=== PATIENT | female | born 1995 ===

== ENCOUNTER 2016-08-30 12:14 | Emergency (ER) | payer MEDICAID ==
[2016-08-30 12:20] VITALS: BMI 25.6
[2016-08-30] MEDS ORDERED: Divalproex 500 mg DR(BID formulation) PO STA (12:40)
--- NOTE | 2016-08-30 12:45 | ED PDOC ---
Arrival/HPI - General Chief Complaint: Seizure Time Seen by Provider: 08/30/16 12:39 Historian: Patient, Parent (mother) - History of Present Illness Narrative History of Present Illness (Text): 08/30/16 12:40 This 21 yo female presents to this ED requesting medication refill. Patient stated she had a seizure episode last week and yesterday. Patient stated she has not taken Keppra since it ran out x 2 months ago. She still have enough Topomax for another week. Patient stated she feels well at this time, and she denies symptoms. Time/Duration: Other (see HPI) Context: Home Past Medical History - Provider Review Nursing Documentation Reviewed: Yes - Cardiac Hx Cardiac Disorders: No - Pulmonary Hx Respiratory Disorders: No - Neurological Hx Neurological Disorder: Yes Hx Seizures: Yes - HEENT Hx HEENT Disorder: No - Renal Hx Renal Disorder: No - Endocrine/Metabolic Hx Endocrine Disorders: No - Hematological/Oncological Hx Blood Disorders: No - Integumentary Hx Dermatological Disorder: No - Musculoskeletal/Rheumatological Hx Musculoskeletal Disorders: No - Gastrointestinal Hx Gastrointestinal Disorders: No - Genitourinary/Gynecological Hx Genitourinary Disorders: No - Psychiatric Hx Psychophysiologic Disorder: No Hx Depression: No Hx Emotional Abuse: No Hx Physical Abuse: No Hx Substance Use: No - Surgical History Hx Tonsillectomy: Yes - Anesthesia Hx Anesthesia: Yes Hx Anesthesia Reactions: No Hx Malignant Hyperthermia: No - Suicidal Assessment Feels Threatened In Home Enviroment: No Family/Social History - Physician Review Nursing Documentation Reviewed: Yes Family/Social History: No Known Family HX Smoking Status: Never Smoked Hx Alcohol Use: No Hx Substance Use: No Hx Substance Use Treatment: No Allergies/Home Meds Allergies/Adverse Reactions: Allergies No Known Allergies Allergy (Verified 08/30/16 12:20) Home Medications: Home Meds Medication Instructions Recorded Confirmed Divalproex [Depakote ER] 1,000 mg PO BID 05/15/16 08/30/16 Folic Acid [Folic Acid] 1 mg PO DAILY 08/30/16 08/30/16 Topiramate [Topamax] 100 mg PO BID 08/30/16 08/30/16 Review of Systems - Review of Systems Constitutional: Normal. absent: Fatigue, Weight Change, Fevers Eyes: Normal ENT: Normal Respiratory: Normal Cardiovascular: Normal Gastrointestinal: Normal Genitourinary Female: Normal Musculoskeletal: Normal Skin: Normal Neurological: Seizure ([facility] seizures. needs refill) Endocrine: Normal Hemo/Lymphatic: Normal Psychiatric: Normal Physical Exam Vital Signs Temp Pulse Resp BP Pulse Ox 08/30/16 14:04 98 F 98 H 16 132/59 L 82 L 08/30/16 12:21 97.9 F Temperature: Afebrile Blood Pressure: Normal Pulse: Regular Respiratory Rate: Normal Appearance: Positive for: Well-Appearing, Non-Toxic, Comfortable Pain Distress: None Mental Status: Positive for: Alert and Oriented X 3 - Systems Exam Head: Present: Atraumatic, Normocephalic Pupils: Present: PERRL Extroacular Muscles: Present: EOMI Conjunctiva: Present: Normal Mouth: Present: Moist Mucous Membranes Neck: Present: Normal Range of Motion Respiratory/Chest: Present: Clear to Auscultation, Good Air Exchange. No: Respiratory Distress, Accessory Muscle Use Cardiovascular: Present: Regular Rate and Rhythm, Normal S1, S2. No: Murmurs Abdomen: Present: Normal Bowel Sounds. No: Tenderness, Distention, Peritoneal Signs Back: Present: Normal Inspection. No: CVA Tenderness Upper Extremity: Present: Normal Inspection, Normal ROM, NORMAL PULSES, Neurovascularly Intact, Capillary Refill < 2s. No: Cyanosis, Edema Lower Extremity: Present: Normal Inspection, NORMAL PULSES, Normal ROM, Neurovascularly Intact, Capillary Refill < 2 s. No: Edema, CALF TENDERNESS Neurological: Present: GCS=15, CN II-XII Intact, Speech Normal, Motor Func Grossly Intact, Normal Sensory Function, Normal Cerebellar Funct, Norm Deep Tendon Reflexes, Gait Normal, Memory Normal Skin: Present: Warm, Dry, Normal Color. No: Rashes Psychiatric: Present: Alert, Oriented x 3 Medical Decision Making ED Course and Treatment: 08/30/16 13:49 I spoke with Central scheduling at [facility]. I was able to get an appointment for patient for September 01, 2016 at 9 am. I spoke with patient regarding the importance to attend this medical appointment at the clinic. She understood plan. Patient remained stable during the course of ED visit. Patient did not have seizures while in the ED. Patient was given her daily Keppra 1 gr PO x once. Patient wishes to be discharge home. Patient was recommended to return to ED if seizures returns. Re-evaluation Time: 13:51 Reassessment Condition: Re-examined, Improved - Medication Orders Current Medication Orders: Discontinued Medications Divalproex Sodium (Depakote Dr(*Bid*)) 1,000 mg PO STAT STA Stop: 08/30/16 12:41 Last Admin: 08/30/16 13:01 Dose: 1,000 MG Disposition/Present on Arrival - Present on Arrival Any Indicators Present on Arrival: No History of DVT/PE: No History of Uncontrolled Diabetes: No Urinary Catheter: No History of Decub. Ulcer: No History Surgical Site Infection Following: None - Disposition Have Diagnosis and Disposition been Completed?: Yes Diagnosis: Medication refill, Seizures Disposition: HOME/ ROUTINE Disposition Time: 13:52 Patient Plan: Discharge Condition: GOOD Discharge Instructions (ExitCare): Epilepsy (ED) Additional Instructions: You have an appointment to see doctor at the clinic this Sunday at 9 am (2 days from today). You may need to arrive earlier for paperwork. Bring empty bottles with you and any information about your medical condition. Take medication as instructed. Return to emergency if seizure returns. Prescriptions: levETIRAcetam [Keppra] 500 mg PO BID #12 tab Referrals: [facility] [Outside] - Follow up with primary Forms: WORK NOTE
[2016-08-30 14:05] VITALS: BP 132/59; PULSE 98; RESP 16; TEMP 98; O2SAT 82
== END 2016-08-30 14:28 | disposition home or self-care (01) ==
LOC: ED 12:14
DX: Z76.0 Encounter for issue of repeat prescription (principal); R56.9 Unspecified convulsions

== ENCOUNTER 2017-02-05 20:07 | Emergency (ER) | payer MEDICAID ==
[2017-02-05 20:07] VITALS: BMI 25.6
[2017-02-05] MEDS ORDERED: Sodium Chloride 0.9% 1,000 ML IV STA (21:22)
--- NOTE | 2017-02-05 22:08 | ED PDOC ---
Arrival/HPI - General Chief Complaint: Abdominal Pain Time Seen by Provider: 02/05/17 20:19 Historian: Patient, Parent - History of Present Illness Narrative History of Present Illness (Text): 02/05/17 22:04 Kleber Dove is a 21 year old female, whose past medical history includes epilepsy (on Depakote), who presents to the Emergency department complaining of nausea, vomiting, and watery diarrhea for 4 days. Patient also reports some abdominal cramping. Patient denies any fever, chills, chest pain, shortness of breath, urinary symptoms, back pain, neck pain, headache, dizziness, or any other complaints. PMD: Dr. Myrtle Bae Time/Duration: < week (4 days) Symptom Onset: Gradual Symptom Course: Unchanged Activities at Onset: Light Context: Home Past Medical History - Provider Review Nursing Documentation Reviewed: Yes - Infectious Disease Hx of Infectious Diseases: None - Reproductive Menopause: No - Cardiac Hx Cardiac Disorders: No - Pulmonary Hx Respiratory Disorders: No - Neurological Hx Neurological Disorder: Yes Hx Seizures: Yes Other/Comment: Epilepsy - HEENT Hx HEENT Disorder: No - Renal Hx Renal Disorder: No - Endocrine/Metabolic Hx Endocrine Disorders: No - Hematological/Oncological Hx Blood Disorders: No - Integumentary Hx Dermatological Disorder: No - Musculoskeletal/Rheumatological Hx Musculoskeletal Disorders: No - Gastrointestinal Hx Gastrointestinal Disorders: No - Genitourinary/Gynecological Hx Genitourinary Disorders: No - Psychiatric Hx Psychophysiologic Disorder: No Hx Depression: No Hx Emotional Abuse: No Hx Physical Abuse: No Hx Substance Use: No - Surgical History Hx Tonsillectomy: Yes - Anesthesia Hx Anesthesia: Yes Hx Anesthesia Reactions: No Hx Malignant Hyperthermia: No - Suicidal Assessment Feels Threatened In Home Enviroment: No Family/Social History - Physician Review Nursing Documentation Reviewed: Yes Family/Social History: Unknown Family HX Smoking Status: Never Smoked Hx Alcohol Use: No Hx Substance Use: No Hx Substance Use Treatment: No Allergies/Home Meds Allergies/Adverse Reactions: Allergies No Known Allergies Allergy (Verified 02/05/17 20:39) Home Medications: Home Meds Medication Instructions Recorded Confirmed Divalproex [Depakote ER] 500 mg PO BID 05/15/16 02/05/17 Review of Systems - Physician Review All systems were reviewed & negative as marked: Yes - Review of Systems Constitutional: Normal. absent: Fevers Eyes: Normal ENT: Normal Respiratory: Normal. absent: SOB, Cough Cardiovascular: Normal. absent: Chest Pain Gastrointestinal: Abdominal Pain, Diarrhea, Nausea, Vomiting Genitourinary Female: Normal. absent: Dysuria, Frequency, Hematuria, Urine Output Changes Musculoskeletal: Normal. absent: Back Pain, Neck Pain Skin: Normal. absent: Rash Neurological: Normal. absent: Headache, Dizziness Endocrine: Normal Hemo/Lymphatic: Normal Psychiatric: Normal Physical Exam Vital Signs Reviewed: Yes Vital Signs Temp Pulse Resp BP Pulse Ox 02/06/17 00:44 98.1 F 76 18 103/60 98 02/05/17 22:10 78 17 102/64 100 02/05/17 20:29 98.4 F 82 18 97/50 L 100 Temperature: Afebrile Blood Pressure: Normal Pulse: Regular Respiratory Rate: Normal Appearance: Positive for: Well-Appearing, Non-Toxic, Comfortable Pain Distress: None Mental Status: Positive for: Alert and Oriented X 3 - Systems Exam Head: Present: Atraumatic, Normocephalic Pupils: Present: PERRL Extroacular Muscles: Present: EOMI Conjunctiva: Present: Normal Mouth: Present: Moist Mucous Membranes Neck: Present: Normal Range of Motion Respiratory/Chest: Present: Clear to Auscultation, Good Air Exchange. No: Respiratory Distress, Accessory Muscle Use Cardiovascular: Present: Regular Rate and Rhythm, Normal S1, S2. No: Murmurs Abdomen: Present: Normal Bowel Sounds. No: Tenderness, Distention, Peritoneal Signs Back: Present: Normal Inspection Upper Extremity: Present: Normal Inspection. No: Cyanosis, Edema Lower Extremity: Present: Normal Inspection. No: Edema Neurological: Present: GCS=15, CN II-XII Intact, Speech Normal Skin: Present: Warm, Dry, Normal Color. No: Rashes Psychiatric: Present: Alert, Oriented x 3, Normal Insight, Normal Concentration Medical Decision Making ED Course and Treatment: 02/05/17 21:20 Impression: 21 year old female complaining of nausea, vomiting, diarrhea, and abdominal cramping. Differential Diagnosis included but are not limited to: gastroenteritis Plan: -- Labs, lipase -- Urinalysis -- IV fluids -- Zofran -- Pepcid -- Reassess and disposition Prior Visits: Notes and results from previous visits were reviewed. On 08/30/2016, pt was seen in the Emergency department for medication refill. Pt was discharge home. Progress Notes: 02/06/17 00:05 On reevaluation the patient feels better and is in no acute distress. I have discussed the results and plan with the patient, who expresses understanding. Patient given the opportunity to ask question, all questions were answered and there is agreement with the plan to discharge the patient home. Patient is stable for discharge. Patient was instructed to follow up with physician/clinic in 1-2 days or return if symptoms persist/worsen or new concerning symptoms arise. - Lab Interpretations Lab Results: 02/05/17 21:45 02/05/17 21:45 Lab Results 02/05/17 21:50: Urine Color Yellow, Urine Appearance Slight-cloudy, Urine pH 6.5 , Ur Specific [place]nathy 1.025, Urine Protein 30 H, Urine Glucose (UA) Negative, Urine Ketones 40 H, Urine Blood Negative, Urine Nitrate Negative, Urine Bilirubin Small H, Urine Urobilinogen 1.0 H, Ur Leukocyte Esterase Small H, Urine RBC 0 - 2, Urine WBC 5 - 10, Ur Epithelial Cells Many, Urine Bacteria Mod , Urine HCG, Qual Negative 02/05/17 21:45: WBC 4.3 L, RBC 3.58, Hgb 11.3 L, Hct 32.7 L, MCV 91.3, MCH 31.6 , MCHC 34.6, RDW 13.4, Plt Count 147, MPV 8.9 02/05/17 21:45: Sodium 140, Potassium 3.5 L, Chloride 108, Carbon Dioxide 20 L, Anion Gap 16, BUN 17, Creatinine 0.8, Est GFR ( Amer) > 60, Est GFR (Non- Af Amer) > 60, Random Glucose 76, Calcium 8.9, Total Bilirubin 0.4, AST 32, ALT 46, Alkaline Phosphatase 47, Total Protein 6.1, Albumin 3.1, Globulin 3.0, Albumin/Globulin Ratio 1.1, Lipase 58 I have reviewed the lab results: Yes - Medication Orders Current Medication Orders: Discontinued Medications Famotidine (Pepcid) 20 mg IVP STAT STA Stop: 02/05/17 21:26 Last Admin: 02/05/17 22:11 Dose: 20 mg IVP Administration Document 02/05/17 22:11 SF (Rec: 02/05/17 22:11 SF [facility] [email or web address] Charges for Administration # of IVP Administrations 1 Sodium Chloride (Sodium Chloride 0.9%) 1,000 mls @ 999 mls/hr IV .Q1H1M STA Stop: 02/05/17 22:22 Last Admin: 02/05/17 21:45 Dose: 999 mls/hr eMAR Start Stop Document 02/05/17 21:45 SF (Rec: 02/05/17 21:45 [email or web address] Intravenous Solution Start Date 02/05/17 Start Time 21:45 End Date 02/05/17 End time 22:46 Total Infusion Time 61 Ondansetron HCl (Zofran Inj) 4 mg IVP ONCE ONE Stop: 02/05/17 21:26 Last Admin: 02/05/17 22:11 Dose: 4 mg IVP Administration Document 02/05/17 22:11 SF ([facility]17 [email or web address] Charges for Administration # of IVP Administrations 1 - Scribe Statement The provider has reviewed the documentation as recorded by the Maria Elena Munoz Provider Scribe Attestation: All medical record entries made by the Scribe were at my direction and personally dictated by me. I have reviewed the chart and agree that the record accurately reflects my personal performance of the history, physical exam, medical decision making, and the department course for this patient. I have also personally directed, reviewed, and agree with the discharge instructions and disposition. Disposition/Present on Arrival - Present on Arrival Any Indicators Present on Arrival: No History of DVT/PE: No History of Uncontrolled Diabetes: No Urinary Catheter: No History of Decub. Ulcer: No History Surgical Site Infection Following: None - Disposition Have Diagnosis and Disposition been Completed?: Yes Diagnosis: Gastroenteritis Disposition: HOME/ ROUTINE Disposition Time: 00:05 Patient Plan: Discharge Condition: STABLE Discharge Instructions (ExitCare): Gastroenteritis (ED) Additional Instructions: Drink plenty of liquids/may drink Gatorade or Pedialyte/advance to bland diet/ meds as prescribed/follow up with your doctor this week Prescriptions: Dicyclomine [Dicyclomine HCl] 10 mg PO QID PRN #16 cap PRN Reason: Gi Distress Famotidine [Pepcid] 20 mg PO BID #24 tab Referrals: Idalia Bae DO [Primary Care Provider] - Follow up with primary Forms: [employer] (Finnish)
[2017-02-05 22:24] LABS: ALB/GLOB RATIO 1.1 (1.1-1.8); ALKALINE PHOSPHATASE 47 U/L (38-126); ALT/SGPT 46 U/L (7-56); AST/SGOT 32 U/L (14-36); BILIRUBIN,TOTAL 0.4 mg/dL (0.2-1.3); BLOOD UREA NITROGEN 17 mg/dL (7-21); CALCIUM 8.9 mg/dL (8.4-10.5); CARBON DIOXIDE 20 mmol/L (21-33); CHLORIDE 108 mmol/L (95-110); GFR AFRICAN-AMERICAN > 60; GLUCOSE,RANDOM 76 mg/dL (70-110); LIPASE 58 U/L (23-300); POTASSIUM 3.5 mmol/L (3.6-5.0); SODIUM 140 mmol/L (132-148); TOTAL PROTEIN 6.1 g/dL (5.8-8.3)
[2017-02-05 22:31] LABS: HEMATOCRIT 32.7 % (36.0-48.0); MEAN CELL VOLUME 91.3 fl (80.0-105.0); MEAN CORPUSCULAR HEMOGLOBIN 31.6 pg (25.0-35.0); MEAN CORPUSCULAR HGB CONC 34.6 g/dl (31.0-37.0); MEAN PLATELET VOLUME 8.9 fl (7.0-11.0); RED CELL DISTRIBUTION WIDTH 13.4 % (11.5-14.5); WHITE BLOOD COUNT 4.3 10^3/ul (4.5-11.0)
[2017-02-05 22:48] LABS: PH,URINE 6.5 (4.7-8.0); URINE BILIRUBIN SMALL (NEGATIVE); URINE BLOOD NEGATIVE (NEGATIVE); URINE GLUCOSE (UA) NEGATIVE (NEGATIVE); URINE KETONE 40 mg/dL (NEGATIVE); URINE LEUKOCYTE ESTERASE SMALL Leu/uL (NEGATIVE); URINE PROTEIN 30 mg/dL (<30 mg/dL)
[2017-02-05 22:50] LABS: URINE APPEARANCE SLIGHT-CLOUDY (CLEAR); URINE COLOR YELLOW (YELLOW)
[2017-02-05 23:10] LABS: URINE RBC 0 - 2 /hpf (0-2)
[2017-02-05 23:11] LABS: URINE BACTERIA MOD (NEG); URINE EPITHELIAL CELLS MANY /hpf (0-5)
[2017-02-06 00:45] VITALS: BP 103/60; PULSE 76; RESP 18; TEMP 98.1; O2SAT 98
== END 2017-02-06 01:00 | disposition home or self-care (01) ==
LOC: ED 20:07
DX: K52.9 Noninfective gastroenteritis and colitis, unspecified (principal)
CPT/HCPCS: 80053; 81001; 83690; 84703; 85027; 87086; 96361; 96374; 96375; 99285; J2405; J7040